=== PATIENT | male | born 1965 | race Two or more races ===

== ENCOUNTER 2024-06-05 09:15 | Day surgery (SDC) | payer OTHER ==
[~2024-06-05] VITALS: Ht 170.2 cm; Wt 83.0 kg
[2024-06-05] VITALS (20 sets, daily range): BP systolic 121–172; BP diastolic 64–103; PULSE 67–103; RESP 11–19; TEMP 98.3; O2SAT 93–97
[2024-06-05] MEDS: ceFAZolin 2gm in dextrose, iso 50 ML IV ONE ×2 (05:30→10:18)
[~2024-06-05 09:15] MED LIST: ATOR40TA72 PO; BENA40TA90 PO; famotidine 20mg tablet PO ONE; ringers solution, lacted 1,000 ML IV SCH
[2024-06-05] MEDS: famotidine 20mg tablet PO ONE (10:18)
[2024-06-05 10:41] LABS: BASOPHILS % (AUTO) 0.6 % (0-1); EOSINOPHILS # (AUTO) 0.4 X10'3 (0-0.9); EOSINOPHILS % (AUTO) 5.5 % (0-6); LYMPHOCYTES # (AUTO) 1.1 X10'3 (1.1-4.8); LYMPHOCYTES % (AUTO) 16.7 % (21-51); MEAN CORPUSCULAR HEMOGLOBIN 32.2 PG (27.0-31.0); MEAN CORPUSCULAR HGB CONC 34.2 g/dL (33.0-36.5); MEAN CORPUSCULAR VOLUME 94.1 FL (78-98); MEAN PLATELET VOLUME 9.2 FL (7.4-10.4); MONOCYTES # (AUTO) 0.4 X10'3 (0-0.9); NEUTROPHILS # (AUTO) 4.6 X10'3 (1.8-7.7); NEUTROPHILS % (AUTO) 71.2 % (42-75); PRE OP HEMATOCRIT 45.5 % (42.0-52.0); PRE OP HEMOGLOBIN 15.6 g/dL (14.0-17.9); PRE OP PLATELET COUNT 199 X10'3 (140-440); PRE OP WHITE BLOOD COUNT 6.4 10'3 (4.8-10.8); RED BLOOD COUNT 4.84 X10'6 (4.70-6.10); RED CELL DISTRIBUTION WIDTH 13.3 % (11.5-14.5)
[2024-06-05 10:44] LABS: ALBUMIN 3.4 G/DL (3.4-5.0); ALKALINE PHOSPHATASE 78 IU/L (46-116); BLOOD UREA NITROGEN 17 MG/DL (7-18); CALCIUM 8.7 MG/DL (8.5-10.1); CHLORIDE 108 MMOL/L (99-107); CREATININE 0.85 MG/DL (0.60-1.10); PRE OP ALT 42 U/L (30-65); PRE OP ANION GAP 8 (8-16); PRE OP AST 25 U/L (10-37); PRE OP BILIRUB, TOTAL 1.3 MG/DL (0.0-1.0); PRE OP GLUCOSE 124 MG/DL (70-104); PRE OP SODIUM 142 MMOL/L (135-145); TOTAL CARBON DIOXIDE 26.2 MMOL/L (24-32); TOTAL PROTEIN 6.9 G/DL (6.4-8.2); eCRCL 92 ML/MIN; eGFR > 90 ML/MIN
[2024-06-05] MEDS ORDERED: morphine 2 MG/ML inj. syringe IV PRN (11:05)
[2024-06-05] MEDS ORDERED: morphine 4 MG/ML inj SYRINge IV PRN (11:05)
[2024-06-05] MEDS ORDERED: hydrALAZINE 20mg/ml inj. IV PRN (11:05)
[2024-06-05] MEDS ORDERED: labetalol 20mg/4ml (5mg/ml) syringe IV PRN (11:05)
[2024-06-05] MEDS ORDERED: fentaNYL/PF 50MCG/1 ML 2ML syringe IV PRN ×2 (11:05)
[2024-06-05] MEDS ORDERED: ringers solution, lacted 1,000 ML IV SCH (11:05)
[2024-06-05] MEDS ORDERED: ondansetron/PF 4mg/2ml inj IV PRN (11:05)
[2024-06-05] MEDS ORDERED: sevoflurane 250ml liquid IH ONE (12:05)
[2024-06-05] MEDS ORDERED: dexamethasone sod phosphate 4mg/ml inj. ONE (12:08)
[2024-06-05] MEDS ORDERED: LIDOcaine 2% (20mg/ml) 5ml vial ONE (12:08)
[2024-06-05] MEDS ORDERED: ondansetron/PF 4mg/2ml inj ONE (12:08)
[2024-06-05] MEDS ORDERED: propofol inj 20 ML IV ONE (12:08)
[2024-06-05] MEDS ORDERED: rocuronium 10mg/ml inj IV ONE (12:08)
[2024-06-05] MEDS ORDERED: acetaminophen 1,000mg/100ml IV 100 ML IV ONE (12:09)
[2024-06-05] MEDS ORDERED: midazolam 1 mg/ML 2ml injection ONE (12:10)
[2024-06-05] MEDS ORDERED: fentaNYL/PF 50MCG/1 ML 2ML syringe ONE ×2 (12:10→13:08)
[2024-06-05] MEDS ORDERED: hydrALAZINE 20mg/ml inj. ONE (12:50)
[2024-06-05] MEDS ORDERED: glycopyrrolate 0.2mg/ml inj ONE (13:09)
[2024-06-05] MEDS: meperidine/PF 25mg/ml syringe IV STA (13:58)
[2024-06-05] MEDS: HYDROcodone/acetaminophen 5mg/325mg tablet PO PRN (17:13)
== END 2024-06-05 17:20 | disposition home or self-care (01) ==
LOC: PAS 09:15
PROVIDERS: ATTEND Surgery
DX: K40.20 Bilateral inguinal hernia, without obstruction or gangrene, not specified as recurrent (principal); K42.9 Umbilical hernia without obstruction or gangrene; I10 Essential (primary) hypertension; E78.00 Pure hypercholesterolemia, unspecified; J45.909 Unspecified asthma, uncomplicated; E66.3 Overweight; Z87.891 Personal history of nicotine dependence; Z79.899 Other long term (current) drug therapy; Z98.890 Other specified postprocedural states; Z68.28 Body mass index [BMI] 28.0-28.9, adult; Z83.3 Family history of diabetes mellitus
CPT/HCPCS: 36415; 49591; 49650; 80053; 82948; 85025; 93005; C1781; J0131; J0360; J0690; J1100; J2003; J2175; J2250; J2405; J2704; J2710; J3010; J3490; J7030; J7120; S2900; Z7506; Z7508; Z7512; A4215; A4615; A4618; C1758